=== PATIENT | male | born 1975 | race Caucasian/White ===

== ENCOUNTER 2017-05-07 22:16 | Emergency (ER) | payer OTHER ==
[~2017-05-07] VITALS: Ht 175.3 cm; Wt 72.6 kg
[~2017-05-07 22:16] MED LIST: FLEXERIL PO; HYDROCODONE-AP1 EAC6 PO; NAPROSYN500 MG PO
[2017-05-07 22:55] LABS: ABSOLUTE BASOPHILS 0.2 thou/uL (0.0-0.2); ABSOLUTE EOSINOPHILS 0.3 thou/uL (0.0-0.7); ABSOLUTE LYMPHOCYTES 2.5 thou/uL (0.8-5.3); ABSOLUTE MONOCYTES 0.5 thou/uL (0.0-1.2); ABSOLUTE NEUTROPHILS 3.5 thou/uL (1.6-8.1); BASOPHILS 2.5 %; EOSINOPHILS 4.9 %; HEMATOCRIT 40.9 % (42.0-52.0); HEMOGLOBIN 13.9 gm/dL (14.0-18.0); MCH 28.9 pg (26.0-34.0); MCHC 33.9 g/dL (28.0-37.0); MCV 85.3 fL (80.0-100.0); MONOCYTES 6.8 %; MPV 10.1 fl. (7.2-11.1); NUCLEATED RBCS 0 /100WBC; PLATELET COUNT* 216 thou/uL (150-400); POLYS 49.8 %; RDW-CV 13.2 % (10.5-14.5)
[2017-05-07 23:04] LABS: ANION GAP 3 mmol/L (7-16); BUN 10 mg/dL (7-18); CALCIUM 9.1 mg/dL (8.5-10.1); CHLORIDE 105 mmol/L (98-107); CO2 32 mmol/L (21-32); CREATININE 1.1 mg/dL (0.6-1.3); GLUCOSE 114 mg/dL (70-99); POTASSIUM 4.3 mmol/L (3.5-5.1); SODIUM 140 mmol/L (136-145)
[2017-05-07 23:15] LABS: ALBUMIN 4.1 g/dL (3.4-5.0); ALKALINE PHOSPHATASE 61 U/L (46-116); LIPASE 206 U/L (73-393); MAGNESIUM 2.2 mg/dL (1.8-2.4); NT-PRO BRAIN NAT PEPTIDE 7 pg/mL (<300); SGOT 15 U/L (15-37); SGPT 21 U/L (30-65); TOTAL BILIRUBIN 0.4 mg/dL (<0.1-1.0); TROPONIN-I LEVEL <0.06 ng/mL (<0.06)
[2017-05-08] MEDS ORDERED: NORCO 5-325 TA1 EACH PO (00:06)
[2017-05-08 00:25] VITALS: BP 122/70
--- NOTE | 2017-05-08 14:40 | EKG ---
[place] [address] ELECTROCARDIOGRAM REPORT Name: EDVIN GARCIA Room: [facility]#: [id number] Admission: 05/07/17 Attend Phys: Discharge: 05/08/17 Date of : 75 Report #: [id number] THIS REPORT FOR: //name// [facility] ED Test Date: 2017-05-07 Test Time: 22:36:48 Pat Name: EDVIN GARCIA Department: Room: Gender: M [employer] Helper: KEVEN : 1975 Requested By: Lucas Ram Order Number: [id number] MD: Mo Ragland Measurements Intervals [place] Rate: 63 P: 22 CO: 181 QRS: 43 QRSD: 88 T: 38 QT: 360 QTc: 369 Interpretive Statements Sinus rhythm Atrial premature complexes No previous ECG available for comparison Electronically Signed On 05-08-2017 14:40:18 [employer]STRU[employer]AL [employer] by Mo Ragland [email or web address] <ELECTRONICALLY SIGNED> By: Mo Ragland MD, [facility] 05/08/17 1440 [id number] 2236 Mo Ragland MD, FACC /EPI
== END 2017-05-08 00:28 | disposition home or self-care (01) ==
LOC: M.ERS 22:16
PROVIDERS: Emergency Medicine Emergency Medical Services
DX: R07.89 Other chest pain (principal); F10.99 Alcohol use, unspecified with unspecified alcohol-induced disorder

== ENCOUNTER 2017-07-03 19:25 | Emergency (ER) | payer OTHER ==
[~2017-07-03] VITALS: Ht 175.3 cm; Wt 72.6 kg
[~2017-07-03 19:25] MED LIST changes: +NORCO 5-325 TA1 EACH PO
[2017-07-03] MEDS ORDERED: IBUPROFEN 800800 M1 PO (19:46)
[2017-07-03] MEDS ORDERED: EXCEDRIN CAPLE1 EACH PO (19:46)
[2017-07-03] MEDS ORDERED: PROAIR HFA8.5 GM INH (20:42)
[2017-07-03] MEDS ORDERED: PREDNISONE50 MG PO (20:42)
[2017-07-03 20:51] VITALS: BP 122/82
== END 2017-07-03 20:53 | disposition home or self-care (01) ==
LOC: M.ERS 19:25
DX: J40 Bronchitis, not specified as acute or chronic (principal)

== ENCOUNTER 2017-08-28 18:53 | Emergency (ER) | payer OTHER ==
[~2017-08-28] VITALS: Ht 175.3 cm; Wt 72.6 kg
[~2017-08-28 18:53] MED LIST changes: +EXCEDRIN CAPLE1 EACH PO; +IBUPROFEN 800800 M1 PO; +PREDNISONE50 MG PO; +PROAIR HFA8.5 GM INH
[2017-08-28] MEDS ORDERED: IBUPROFEN 800800 MG PO (19:33)
[2017-08-28] MEDS ORDERED: ROBAXIN 750 MG750 M1 PO (19:33)
[2017-08-28] MEDS ORDERED: NORCO 5-325 TA1 EACH PO (19:33)
[2017-08-28 20:01] VITALS: BP 134/85
== END 2017-08-28 19:55 | disposition home or self-care (01) ==
LOC: M.ERS 18:53
DX: M25.511 Pain in right shoulder (principal); M54.2 Cervicalgia

== ENCOUNTER 2018-06-17 01:43 | Emergency (ER) | payer OTHER ==
[~2018-06-17] VITALS: Ht 175.3 cm; Wt 74.4 kg
[~2018-06-17 01:43] MED LIST changes: +IBUPROFEN 800800 MG PO; +ROBAXIN 750 MG750 M1 PO
[2018-06-17] MEDS ORDERED: BACTRIM DS TAB1 EACH PO (02:12)
[2018-06-17] MEDS ORDERED: HYDROCODON-ACE1 EAC7 PO (02:12)
[2018-06-17 02:34] VITALS: BP 136/91
[2018-06-18] MEDS ORDERED: KEFLEX500 M1 PO (20:17)
== END 2018-06-17 02:34 | disposition home or self-care (01) ==
LOC: M.ERS 01:43
DX: J34.0 Abscess, furuncle and carbuncle of nose (principal)

== ENCOUNTER 2018-06-18 19:26 | Emergency (ER) | payer OTHER ==
[~2018-06-18] VITALS: Ht 175.3 cm; Wt 72.6 kg
[~2018-06-18 19:26] MED LIST changes: +BACTRIM DS TAB1 EACH PO; +HYDROCODON-ACE1 EAC7 PO
[2018-06-18] MEDS ORDERED: KEFLEX500 M1 PO (20:17)
[2018-06-18 20:50] VITALS: BP 140/77
[2018-06-19] MEDS ORDERED: NORCO 7.5-3251 EACH PO (23:26)
[2018-06-19] MEDS ORDERED: CLEOCIN HCL150 MG PO (23:26)
[2018-06-19] MEDS ORDERED: ZOFRAN ODT4 MG PO (23:26)
== END 2018-06-18 20:50 | disposition home or self-care (01) ==
LOC: M.ERS 19:26
DX: L03.211 Cellulitis of face (principal)

== ENCOUNTER 2018-06-19 21:16 | Emergency (ER) | payer OTHER ==
[~2018-06-19] VITALS: Ht 175.3 cm; Wt 72.6 kg
[~2018-06-19 21:16] MED LIST changes: +KEFLEX500 M1 PO
[2018-06-19 22:25] LABS: ABSOLUTE BASOPHILS 0.1 thou/uL (0.0-0.2); ABSOLUTE EOSINOPHILS 0.1 thou/uL (0.0-0.7); ABSOLUTE LYMPHOCYTES 1.4 thou/uL (0.8-5.3); ABSOLUTE NEUTROPHILS 8.8 thou/uL (1.6-8.1); BASOPHILS 0.7 %; EOSINOPHILS 0.5 %; HEMATOCRIT 42.4 % (42.0-52.0); HEMOGLOBIN 14.4 gm/dL (14.0-18.0); LYMPHOCYTES 12.2 %; MCH 28.7 pg (26.0-34.0); MCHC 33.9 g/dL (28.0-37.0); MCV 84.7 fL (80.0-100.0); MONOCYTES 8.9 %; MPV 10.3 fl. (7.2-11.1); NUCLEATED RBCS 0 /100WBC; PLATELET COUNT* 240 thou/uL (150-400); POLYS 77.7 %; RBC 5.01 mil/uL (4.50-6.00); RDW-CV 13.1 % (10.5-14.5); WBC 11.4 thou/uL (4.0-11.0)
[2018-06-19 22:30] LABS: CALCIUM 9.7 mg/dL (8.5-10.1); CREATININE 1.1 mg/dL (0.6-1.3)
[2018-06-19] MEDS ORDERED: CLEOCIN HCL150 MG PO (23:26)
[2018-06-19] MEDS ORDERED: NORCO 7.5-3251 EACH PO (23:26)
[2018-06-19] MEDS ORDERED: ZOFRAN ODT4 MG PO (23:26)
[2018-06-19 23:53] VITALS: BP 137/69
== END 2018-06-19 23:54 | disposition home or self-care (01) ==
LOC: M.ERS 21:16
PROVIDERS: Physician Assistant
DX: K12.2 Cellulitis and abscess of mouth (principal); R11.2 Nausea with vomiting, unspecified